=== PATIENT | male | born 1970 | race Caucasian/White ===

== ENCOUNTER 2023-04-22 06:20 | Day surgery (SDC) | payer OTHER ==
[~2023-04-22] VITALS: Ht 185.4 cm; Wt 114.3 kg
[~2023-04-22 06:20] MED LIST: BL IBUPROFEN200 MG PO; LISINOP/HCTZ1 TAB PO
[2023-04-22 10:44] VITALS: BP 144/77
== END 2023-04-22 09:50 | disposition home or self-care (01) | DRG 375 ==
LOC: ENDO 06:20 → ORM 08:45 → ENDO 08:45
PROVIDERS: ATTEND Surgery
PROC: 0DBK8ZX Excision of Ascending Colon, Via Natural or Artificial Opening Endoscopic, Diagnostic (ICD-10-PCS; principal; 2023-04-22)
PROC: 0DBP8ZX Excision of Rectum, Via Natural or Artificial Opening Endoscopic, Diagnostic (ICD-10-PCS; 2023-04-22)
DX: C19 Malignant neoplasm of rectosigmoid junction (principal); K92.1 Melena; D12.2 Benign neoplasm of ascending colon; K57.30 Diverticulosis of large intestine without perforation or abscess without bleeding; I10 Essential (primary) hypertension